=== PATIENT | female | born 1945 | race Caucasian/White ===

== ENCOUNTER 2023-10-05 20:31 | Emergency (ER) | payer MEDICARE, OTHER ==
[~2023-10-05] VITALS: Ht 165.1 cm; Wt 106.5 kg
[2023-10-05 20:50] LABS: PH, VENOUS 7.438 (7.31-7.41)
[2023-10-05 20:52] LABS: BASOPHILS 0.9 % (0-2); EOSINOPHILS 1.6 % (0-6); HEMATOCRIT 36.8 % (35.0-50.0); HEMOGLOBIN 13.1 g/dL (12.0-18.0); LYMPHOCYTES 18.4 % (24-44); MCH 37.5 (27-36); MCHC 35.6 g/dl (30-36); MCV 105.2 fl (81-99); MONOCYTES 8.4 % (0-12); NEUTROPHILS 70.7 % (39-80); PLATELET COUNT 138 K/uL (140-440); RDW 14.6 (10.5-15.0)
[2023-10-05 21:16] LABS: ALBUMIN 2.6 g/dL (3.4-5.0); ALBUMIN/GLOBULIN RATIO 0.43 (1.1-2.4); ALCOHOL, MEDICAL <3 ng/dL (<3); ALKALINE PHOSPHATASE 109 U/L (46-116); ALT (SGPT) 18 U/L (14-59); ANION GAP 9.6 (7-21); AST (SGOT) 28 U/L (15-37); BILIRUBIN, TOTAL 1.5 ng/dL (0.2-1.0); BUN/CREATININE RATIO 12.94 (6.0-28.6); CARBON DIOXIDE 30 mmol/L (21-32); CHLORIDE 93 mmol/L (98-107); CREATININE, SERUM 1.39 mg/dL (0.55-1.02); GLOMERULAR FILTRATION RATE,EST 39 mL/min (>60); POTASSIUM 3.6 mmol/L (3.5-5.1); PROTEIN, TOTAL 8.6 g/dL (6.4-8.2); TSH, 3RD GENERATION 6.559 uIU/mL (0.358-3.740); UREA NITROGEN 18 mg/dL (7-18)
[2023-10-05 21:34] LABS: BILIRUBIN, URINE NEGATIVE (negative); BLOOD/HGB, URINE NEGATIVE (Negative); KETONE, URINE NEGATIVE (Negative); LEUK ESTERASE, URINE TRACE (negative); NITRITE, URINE NEGATIVE (negative)
[2023-10-05 21:40] LABS: EPITHELIAL CELLS, URINE SQUAMOUS 3+ /lpf (0-1+)
[2023-10-05 21:41] LABS: BACTERIA, URINE 4+ /hpf (negative); CASTS, URINE NONE SEEN \\lpf; COLLECTION TYPE, URINE CLEAN CATCH; CRYSTALS, URINE NONE SEEN (0-1+); RED BLOOD CELLS, URINE 0-1 /hpf (0-5); REFLEX CULTURE, URINE No (No)
[2023-10-05] MEDS ORDERED: NITROFURANTOIN MONOHYD MACROCR 100 MG HOME.PACK PO ONE (21:45)
[2023-10-05] MEDS ORDERED: QUETIAPINE FUMARATE 25 MG TAB PO ONE (21:45)
[2023-10-05 21:50] VITALS: BP 118/98
[2023-10-05 21:59] LABS: AMPHETAMINES, URINE NEGATIVE (NEGATIVE); BARBITURATES, URINE NEGATIVE (NEGATIVE); BENZODIAZEPINE, URINE NEGATIVE (NEGATIVE); BUPRENORPHINE, URINE NEGATIVE (NEGATIVE); CANNABINOID, URINE NEGATIVE (NEGATIVE); COCAINE, URINE NEGATIVE (NEGATIVE); ECSTASY, URINE NEGATIVE (NEGATIVE); FENTANYL, URINE NEGATIVE (NEGATIVE); METHADONE, URINE NEGATIVE (NEGATIVE); OPIATES, URINE POSITIVE (NEGATIVE); OXYCODONE, URINE NEGATIVE (NEGATIVE); PHENCYCLIDINE, URINE NEGATIVE (NEGATIVE)
== END 2023-10-05 22:40 | disposition home or self-care (01) ==
LOC: ED 20:31
PROVIDERS: Family Medicine
DX: N39.0 Urinary tract infection, site not specified (principal); I50.9 Heart failure, unspecified; E66.9 Obesity, unspecified
CPT/HCPCS: 36415; 51701; 80053; 80307; 81001; 82803; 83735; 84443; 85025; 99285-25; A9270; G0480

== ENCOUNTER 2023-12-06 21:29 | Emergency (ER) | payer OTHER, MEDICARE ==
[~2023-12-06] VITALS: Ht 165.1 cm; Wt 102.4 kg
[~2023-12-06 21:29] MED LIST: MACROBID 100 M100 MG PO; SEROQUEL25 MG PO
[2023-12-06] MEDS ORDERED: POTASSIUM CHLO20 ME2 PO (21:48)
[2023-12-06] MEDS ORDERED: FOLIC ACID1 MG PO (21:48)
[2023-12-06] MEDS ORDERED: AZATHIOPRINE50 MG PO (21:48)
[2023-12-06] MEDS ORDERED: OMEPRAZOLE20 MG PO (21:49)
[2023-12-06] MEDS ORDERED: TRAZODONE HCL50 MG PO (21:50)
[2023-12-06] MEDS ORDERED: DULOXETINE HCL30 MG PO (21:53)
[2023-12-06] MEDS ORDERED: HYDROCODON-ACE1 EA10 PO (21:53)
[2023-12-06] MEDS ORDERED: FUROSEMIDE40 MG PO (21:53)
[2023-12-06] MEDS ORDERED: HYDROCORTISONE10 MG PO (21:55)
[2023-12-06] MEDS ORDERED: METOPROLOL TART25 MG PO (21:55)
[2023-12-06] MEDS ORDERED: LEVOTHYROXINE125 MCG PO (21:57)
[2023-12-06 23:05] LABS: HEMOGLOBIN 13.5 g/dL (12.0-18.0)
[2023-12-06 23:07] LABS: BASOPHILS 3.2 % (0-2); EOSINOPHILS 2.2 % (0-6); HEMATOCRIT 38.3 % (35.0-50.0); MCH 37.8 (27-36); MCHC 35.3 g/dl (30-36); MONOCYTES 7.6 % (0-12); PLATELET COUNT 130 K/uL (140-440); RBC 3.58 M/ul (4.3-5.7)
[2023-12-06 23:20] LABS: BILIRUBIN, URINE NEGATIVE (negative); BLOOD/HGB, URINE NEGATIVE (Negative); KETONE, URINE NEGATIVE (Negative); LEUK ESTERASE, URINE NEGATIVE (negative); NITRITE, URINE NEGATIVE (negative); PH, URINE 6.5 (5-7)
[2023-12-06 23:21] LABS: ALBUMIN 2.6 g/dL (3.4-5.0); ALBUMIN/GLOBULIN RATIO 0.46 (1.1-2.4); ALCOHOL, MEDICAL <3 ng/dL (<3); ALKALINE PHOSPHATASE 107 U/L (46-116); ALT (SGPT) 12 U/L (14-59); ANION GAP 8.9 (7-21); AST (SGOT) 23 U/L (15-37); BILIRUBIN, TOTAL 1.5 ng/dL (0.2-1.0); BUN/CREATININE RATIO 11.27 (6.0-28.6); CALCIUM 9.1 mg/dL (8.5-10.1); CARBON DIOXIDE 31 mmol/L (21-32); CHLORIDE 97 mmol/L (98-107); CREATININE, SERUM 1.33 mg/dL (0.55-1.02); GLOMERULAR FILTRATION RATE,EST 41 mL/min (>60); POTASSIUM 3.9 mmol/L (3.5-5.1); PROTEIN, TOTAL 8.3 g/dL (6.4-8.2); UREA NITROGEN 15 mg/dL (7-18)
[2023-12-07 01:06] VITALS: BP 103/70
== END 2023-12-07 01:07 | disposition home or self-care (01) ==
LOC: ED 21:29
PROVIDERS: Internal Medicine
DX: Z04.3 Encounter for examination and observation following other accident (principal); G89.29 Other chronic pain; M54.50 Low back pain, unspecified; E87.1 Hypo-osmolality and hyponatremia; F03.90 Unspecified dementia, unspecified severity, without behavioral disturbance, psychotic disturbance, mood disturbance, and anxiety; E03.9 Hypothyroidism, unspecified; I50.9 Heart failure, unspecified; I48.91 Unspecified atrial fibrillation; K21.9 Gastro-esophageal reflux disease without esophagitis; E66.9 Obesity, unspecified; Z68.37 Body mass index [BMI] 37.0-37.9, adult; Z88.0 Allergy status to penicillin; Z79.52 Long term (current) use of systemic steroids; Z79.890 Hormone replacement therapy; Z79.899 Other long term (current) drug therapy; W18.39XA Other fall on same level, initial encounter
CPT/HCPCS: 36415; 51701; 80053; 81003; 85025; 99283-25; G0480

== ENCOUNTER 2023-12-18 05:19 | Emergency (ER) | payer MEDICARE, OTHER ==
[~2023-12-18] VITALS: Ht 165.1 cm; Wt 101.2 kg
[~2023-12-18 05:19] MED LIST changes: +AZATHIOPRINE50 MG PO; +DULOXETINE HCL30 MG PO; +FOLIC ACID1 MG PO; +FUROSEMIDE40 MG PO; +HYDROCODON-ACE1 EA10 PO; +HYDROCORTISONE10 MG PO; +LEVOTHYROXINE125 MCG PO; +METOPROLOL TART25 MG PO; +OMEPRAZOLE20 MG PO; +POTASSIUM CHLO20 ME2 PO; +TRAZODONE HCL50 MG PO
--- OUTSIDE RECORDS SUMMARY | 2023-12-18 05:23 | XMS ---
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 Events No recent Security Events currently on file CRITERIA MET - [facility] - 2 Visits in 30 Days CARE PROVIDERS -[facility] Dentist: Electrical Assembly Supervisor [facility] [place] PHONE: [phone] -Alex Dentist: Electrical Assembly Supervisor [facility] PHONE: [phone] МАРИЯ DAMON Nurse Practitioner: Family [facility] PHONE: [phone] RIYA PABLO Nurse Practitioner: Adult Health [facility] PHONE: [phone] STEVIE ROSENBAUM Internal Medicine Current PHONE: [phone] Guille Lagunas DO Family Medicine Current PHONE: Unknown GREGORY MARIE Nurse Practitioner: Family Current PHONE: [phone] Rhoda has no Care Guidelines for this patient. Hong VISIT COUNT (12 MO.) [address] [place] [address] [place] TOTAL 11 NOTE: Visits indicate total known visits. ED/UCC VISIT TRACKING (12 MO.) 12/18/2023 05:19 [facility] TYPE: Emergency COMPLAINT: - HIP PAIN 12/06/2023 21:30 [facility] TYPE: Emergency COMPLAINT: - FALL DIAGNOSES: - Allergy status to penicillin - Body mass index [BMI] 37.0-37.9, adult - Encounter for examination and observation following other accident - Gastro-esophageal reflux disease without esophagitis - Heart failure, unspecified - Heart failure, unspecified - Hormone replacement therapy - Hypo-osmolality and hyponatremia - Hypothyroidism, unspecified - Injury, unspecified, initial encounter - detention (current) use of systemic steroids - Low back pain, unspecified - Obesity, unspecified - Other chronic pain - Other fall on same level, initial encounter - Other assistant terminal manager (current) drug therapy - Unspecified atrial fibrillation - Unspecified dementia, unspecified severity, without behavioral disturbance, psychotic disturbance, mood disturbance, and anxiety 10/05/2023 20:32 [facility] TYPE: Emergency COMPLAINT: - AMS DIAGNOSES: - Heart failure, unspecified - Obesity, unspecified - Transient alteration of awareness - Urinary tract infection, site not specified 06/02/2023 09:21 [email or web address] TYPE: Emergency DIAGNOSES: - Weakness - WEAKNESS 05/31/2023 08:43 [email or web address] TYPE: Emergency DIAGNOSES: - Pressure ulcer of unspecified buttock, stage 2 - Weakness - SHORTNESS OF BREATH 05/24/2023 02:22 [email or web address] TYPE: Emergency DIAGNOSES: - Dyspnea, unspecified - SOB 04/06/2023 15:37 [email or web address] TYPE: Emergency DIAGNOSES: - Acute bronchiolitis due to respiratory syncytial virus - Acute bronchospasm - Sepsis, unspecified organism - Unspecified atrial fibrillation - SHORTNESS OF BREATH 02/25/2023 16:25 [email or web address] TYPE: Emergency DIAGNOSES: - Hypo-osmolality and hyponatremia - Weakness - Weakness; Fall 02/20/2023 16:05 [email or web address] TYPE: Emergency DIAGNOSES: - Other malaise - Other specified abnormal findings of blood chemistry - Taeniasis, unspecified - HYPOTENSION 02/19/2023 14:56 [email or web address] TYPE: Emergency DIAGNOSES: - Hypo-osmolality and hyponatremia - CELLULITIS 02/12/2023 15:01 [email or web address] TYPE: Emergency DIAGNOSES: - Cellulitis of right upper limb - Hypo-osmolality and hyponatremia - Other sites of candidiasis - Pressure ulcer of sacral region, stage 1 - SENT BY URGENT CARE INPATIENT VISIT TRACKING (12 MO.) 06/02/2023 09:21 [email or web address] TYPE: Medical Surgical DIAGNOSES: - Weakness 04/06/2023 15:37 [email or web address] TYPE: Medical Surgical DIAGNOSES: - Acute bronchiolitis due to respiratory syncytial virus - Acute bronchospasm - Localized edema - Sepsis, unspecified organism - Systemic lupus erythematosus, unspecified - Unspecified atrial fibrillation 02/25/2023 16:25 [facility] OR TYPE: Medical Surgical DIAGNOSES: - Hypo-osmolality and hyponatremia - Weakness 02/12/2023 15:01 [facility] OR TYPE: Medical Surgical DIAGNOSES: - Cellulitis of right upper limb - Hypo-osmolality and hyponatremia - Other sites of candidiasis - Pressure ulcer of sacral region, stage 1 [email or web address]
[2023-12-18] MEDS ORDERED: PAIN RELIEF650 MG (05:54)
[2023-12-18] MEDS ORDERED: CYCLOBENZAPRINE10 MG (05:55)
[2023-12-18] MEDS ORDERED: ARTIFICIAL TEA1 EACH (05:56)
[2023-12-18] MEDS ORDERED: HYDROCORTISONE20 MG (05:57)
[2023-12-18 07:00] VITALS: BP 115/71
== END 2023-12-18 07:00 | disposition home or self-care (01) ==
LOC: ED 05:19
DX: M25.551 Pain in right hip (principal); G89.29 Other chronic pain; J44.9 Chronic obstructive pulmonary disease, unspecified; I50.9 Heart failure, unspecified; E66.01 Morbid (severe) obesity due to excess calories; E03.9 Hypothyroidism, unspecified; F03.90 Unspecified dementia, unspecified severity, without behavioral disturbance, psychotic disturbance, mood disturbance, and anxiety; Z88.0 Allergy status to penicillin; Z79.899 Other long term (current) drug therapy; Z79.890 Hormone replacement therapy; W06.XXXA Fall from bed, initial encounter
CPT/HCPCS: 73502; 99283